=== PATIENT | female | born 1980 ===

== ENCOUNTER → 2024-01-31 | Outpatient (CLI) | payer BC ==
[2024-02-02 14:12] LABS: HSV 1 SUBTYPE BY PCR Detected; HSV 2 SUBTYPE BY PCR Not Detected; HSV SUBTYPE SOURCE VAGINA
== END ==
LOC: LAB SHORT 08:18 → LAB 08:18
PROVIDERS: Physician Assistant
DX: N76.89 Other specified inflammation of vagina and vulva (principal); R31.9 Hematuria, unspecified
CPT/HCPCS: 87086; 87529